=== PATIENT | male | born 1950 | race Caucasian/White ===

== ENCOUNTER 2016-08-28 13:14 | Outpatient (RCR) | payer MEDICARE, OTHER | END 2016-11-26 | disposition home or self-care (01) | LOC: CARDREHAB | DX: Z48.812 Encounter for surgical aftercare following surgery on the circulatory system (principal); Z95.5 Presence of coronary angioplasty implant and graft; I25.10 Atherosclerotic heart disease of native coronary artery without angina pectoris ==

== ENCOUNTER 2018-06-21 13:30 | Outpatient (RCR) | payer OTHER | END 2018-06-21 14:00 | disposition home or self-care (01) | LOC: PT 13:30 | DX: M54.5 Low back pain (principal); M25.552 Pain in left hip ==